=== PATIENT | female | born 1990 | race Hispanic/Latino ===

== ENCOUNTER 2020-10-10 14:28 | Observation (INO) | payer MEDICAID ==
[~2020-10-10] VITALS: Ht 149.9 cm; Wt 77.1 kg
== END 2020-10-10 16:11 | disposition home or self-care (01) ==
LOC: EDH 14:28 → LDH 14:29
PROVIDERS: ADMIT Specialist; ATTEND Specialist
DX: O42.912 Preterm premature rupture of membranes, unspecified as to length of time between rupture and onset of labor, second trimester (principal); O34.219 Maternal care for unspecified type scar from previous cesarean delivery; Z3A.21 21 weeks gestation of pregnancy
CPT/HCPCS: 59025; 76815; 99284; G0378 ×2

== ENCOUNTER 2020-10-18 16:46 | Observation (INO) | payer MEDICAID ==
[~2020-10-18] VITALS: Ht 149.9 cm; Wt 78.0 kg
[2020-10-18 17:21] LABS: APPEARANCE,URINE Clear (CLEAR); BILIRUBIN,URINE Negative (NEGATIVE); COLOR,URINE Yellow (YELLOW); GLUCOSE, URINE (UA) Negative (NEGATIVE); KETONES,URINE Trace mg/dL (NEGATIVE); LEUKOCYTE ESTERASE ,URINE Negative (NEGATIVE); NITRATE,URINE Negative (NEGATIVE); OCCULT BLOOD,URINE Negative (NEGATIVE); PROTEIN,URINE Negative (NEGATIVE)
[2020-10-18 20:01] LABS: AMPHET/METH SCREEN,URINE NEGATIVE (NEGATIVE); BARBITURATE SCREEN, URINE NEGATIVE (NEGATIVE); BENZODIAZEPINES SCREEN,URINE NEGATIVE (NEGATIVE); CANNABINOID SCREEN,URINE NEGATIVE (NEGATIVE); COCAINE SCREEN,URINE NEGATIVE (NEGATIVE); OPIATE SCREEN,URINE NEGATIVE (NEGATIVE); PHENCYCLIDINE SCREEN,URINE NEGATIVE (NEGATIVE)
== END 2020-10-18 20:41 | disposition home or self-care (01) ==
LOC: EDH 16:46 → LDH 16:47
PROVIDERS: ADMIT Specialist; ATTEND Specialist
DX: O26.852 Spotting complicating pregnancy, second trimester (principal); O34.219 Maternal care for unspecified type scar from previous cesarean delivery; Z3A.23 23 weeks gestation of pregnancy
CPT/HCPCS: 59025; 76805; 80305; 81003; 99284; G0378 ×3

== ENCOUNTER 2020-11-12 11:48 | Observation (INO) | payer MEDICAID ==
[2020-11-12 12:26] LABS: APPEARANCE,URINE Clear (CLEAR); BILIRUBIN,URINE Negative (NEGATIVE); COLOR,URINE Yellow (YELLOW); GLUCOSE, URINE (UA) Negative (NEGATIVE); KETONES,URINE Negative (NEGATIVE); LEUKOCYTE ESTERASE ,URINE Negative (NEGATIVE); NITRATE,URINE Negative (NEGATIVE); OCCULT BLOOD,URINE Negative (NEGATIVE); PROTEIN,URINE Negative (NEGATIVE)
== END 2020-11-12 13:30 | disposition home or self-care (01) ==
LOC: LDH 11:48
PROVIDERS: ADMIT Specialist; ATTEND Specialist
DX: Z34.92 Encounter for supervision of normal pregnancy, unspecified, second trimester (principal); Z3A.26 26 weeks gestation of pregnancy
CPT/HCPCS: 59025; 81003; G0378 ×2

== ENCOUNTER 2021-02-13 23:03 | Emergency (ER) | payer MEDICAID ==
[~2021-02-13] VITALS: Ht 149.9 cm; Wt 73.9 kg
[~2021-02-13 23:03] MED LIST: PNV11TAB5 PO
[2021-02-13] MEDS ORDERED: INSULIN HUMULIN R 100 UNIT/ML 3ML ONE (23:08)
[2021-02-13 23:23] VITALS: BP 121/85
[2021-02-13] MEDS ORDERED: ONDANSETRON 4MG INJ ONE (23:41)
[2021-02-13] MEDS ORDERED: MORPHINE 2 MG SYG ONE (23:42)
[2021-02-13 23:44] LABS: BASOPHILS % (AUTO) 0.6 % (0.0-5.0); EOSINOPHILS % (AUTO) 1.7 % (0.0-8.0); HEMATOCRIT 38.9 % (36-48); LYMPHOCYTES % (AUTO) 26.7 % (21.0-51.0); MEAN CORPUSCULAR HEMOGLOBIN 26.9 pg (27.0-33.0); MEAN CORPUSCULAR HGB CONC 31.1 g/dL (32.0-36.0); MEAN CORPUSCULAR VOLUME 86.6 fL (79-99); MONOCYTES % (AUTO) 6.4 % (3.0-13.0); NEUTROPHILS % (AUTO) 64.2 % (40.0-77.0); PLATELET COUNT (AUTO) 475 K/uL (130-400); RED BLOOD CELL COUNT(AUTO) 4.49 MIL/uL (4.00-5.50); RED CELL DISTRIBUTION WIDTH 13.7 % (11.0-15.5); WHITE BLOOD COUNT (AUTO) 10.9 K/uL (4.8-10.8)
[2021-02-13 23:45] LABS: APPEARANCE,URINE Clear (CLEAR); BILIRUBIN,URINE Negative (NEGATIVE); COLOR,URINE Yellow (YELLOW); GLUCOSE, URINE (UA) Negative (NEGATIVE); KETONES,URINE Negative (NEGATIVE); LEUKOCYTE ESTERASE ,URINE Moderate (NEGATIVE); NITRATE,URINE Negative (NEGATIVE); OCCULT BLOOD,URINE Moderate (NEGATIVE); PH,URINE 6.5 (5.0-8.0); PROTEIN,URINE Negative (NEGATIVE); UROBILINOGEN,URINE 0.2 mg/dL (0.2-1.0)
[2021-02-13] MEDS ORDERED: MORPHINE 2 MG SYG IM ONE (23:45)
[2021-02-13] MEDS ORDERED: ONDANSETRON 4MG INJ IVP ONE (23:45)
[2021-02-13 23:48] LABS: HCG,QUAL RESULT NEGATIVE (NEGATIVE)
[2021-02-14 00:02] LABS: CREATININE 0.6 mg/dL (0.5-1.5); POTASSIUM 3.8 mmol/L (3.5-5.1)
[2021-02-14 00:02] LABS: BACTERIA,URINE Few /HPF (None Seen); RBC,URINE 0-1 /HPF (0-1)
[2021-02-14] MEDS ORDERED: IOHEXOL-350 75 ML VIAL IV ONE (00:05)
[2021-02-14 00:06] LABS: ALBUMIN 3.6 g/dL (3.5-5.0); BILIRUBIN,TOTAL 0.3 mg/dL (0.2-1.0); TOTAL PROTEIN, SERUM 8.4 g/dL (6.0-8.3)
[2021-02-14 00:29] VITALS: BP 114/74
[2021-02-14 01:50] VITALS: BP 106/56
[2021-02-14 02:47] VITALS: BP 103/70
[2021-02-14 03:45] VITALS: BP 112/74
[2021-02-14] MEDS ORDERED: METOCLOPRAMIDE 10 MG/2 ML VIAL IVP ONE (03:47)
[2021-02-14] MEDS ORDERED: METOCLOPRAMIDE 10 MG/2 ML VIAL ONE (03:50)
[2021-02-14] MEDS ORDERED: KETOROLAC 15MG/ML VIAL (15MG/ML) ONE (03:50)
[2021-02-14] MEDS ORDERED: KETOROLAC 15MG/ML VIAL (15MG/ML) IV ONE (04:00)
[2021-02-14 04:30] VITALS: BP 106/53
[2021-02-14] MEDS ORDERED: PROM25SU58 RC (05:17)
== END 2021-02-14 05:32 | disposition home or self-care (01) ==
LOC: EDH 23:03
DX: K80.70 Calculus of gallbladder and bile duct without cholecystitis without obstruction (principal); R51.9 Headache, unspecified; Z98.890 Other specified postprocedural states
CPT/HCPCS: 36415; 74177; 80053; 81001; 81025; 83690; 85025; 87088; 96374; 96375 ×2; 99285; J1815; J1885; J2405; J2765; Q9967